=== PATIENT | male | born 1965 | race Hispanic/Latino ===

== ENCOUNTER 2019-02-19 19:46 | Inpatient (IN) | payer MEDICARE, MEDICAID ==
[~2019-02-19] VITALS: Ht 180.3 cm; Wt 82.8 kg
[2019-02-19] MEDS ORDERED: SODIUM CHLORIDE 0.9% 500ML 500 ML IV ONE (19:52)
[2019-02-19 20:28] VITALS: BP 110/65
[2019-02-19] MEDS ORDERED: LAMO25TA9 PO ×2 (21:48→23:17)
[2019-02-19] MEDS ORDERED: ALBU8.5H8 IH (21:48)
[2019-02-19] MEDS ORDERED: ROSU10TA28 PO (21:48)
[2019-02-19] MEDS ORDERED: LORA10TA7 PO (21:48)
[2019-02-19] MEDS ORDERED: ALPR0.255 PO (21:48)
[2019-02-19] MEDS ORDERED: DIPH25CA53 PO (21:48)
[2019-02-19] MEDS ORDERED: LAMO100T16 PO (21:48)
[2019-02-19] MEDS ORDERED: FLUT1BLS IH (21:48)
[2019-02-19] MEDS ORDERED: BUTA-256 PO ×2 (21:48→23:17)
[2019-02-19] MEDS ORDERED: HYDR-4068 PO (21:48)
[2019-02-19] MEDS ORDERED: TIOT4MIS5 IH (21:48)
[2019-02-19] MEDS ORDERED: MONT10TA24 PO (21:48)
[2019-02-19] MEDS ORDERED: OMEP40CA13 PO (21:48)
[2019-02-19] MEDS ORDERED: NALO4SPR NS (21:48)
[2019-02-19] MEDS ORDERED: ASPI-555 PO (21:48)
[2019-02-19] MEDS ORDERED: HYDROCODONE/ACETAMINOPHEN 10/325 MG TAB PO PRN (23:15)
[2019-02-19 23:56] VITALS: BP 112/48
[2019-02-20] VITALS (13 sets, daily range): BP systolic 100–131; BP diastolic 57–72
[2019-02-20 03:28] LABS: ALBUMIN 3.7 g/dL (3.5-5.0); BILIRUBIN,TOTAL 0.3 mg/dL (0.2-1.0); CREATININE 1.3 mg/dL (0.5-1.5); POTASSIUM 4.1 mmol/L (3.5-5.1); TOTAL PROTEIN, SERUM 7.3 g/dL (6.0-8.3)
[2019-02-20 03:29] LABS: HEMATOCRIT 38.5 % (42-54); MEAN CORPUSCULAR HEMOGLOBIN 30.6 pg (27.0-33.0); MEAN CORPUSCULAR HGB CONC 33.9 g/dL (32.0-36.0); MEAN CORPUSCULAR VOLUME 90.3 fL (79-99); PLATELET COUNT (AUTO) 162 K/uL (130-400); RED BLOOD CELL COUNT(AUTO) 4.26 MIL/uL (4.50-6.20); RED CELL DISTRIBUTION WIDTH 13.5 % (11.0-15.5); WHITE BLOOD COUNT (AUTO) 10.6 K/uL (4.8-10.8)
[2019-02-20 03:58] LABS: INR 1.06 (0.85-1.15); PARTIAL THROMBOPLASTIN TIME 22.3 SEC (26.3-35.5); PROTHROMBIN TIME 10.9 SEC (9.6-11.6)
[2019-02-20] MEDS ORDERED: CEFAZOLIN SODIUM 1 GM VIAL IVP SCH (06:00)
[2019-02-20] MEDS ORDERED: DIPHENHYDRAMINE HCL 25 MG CAPSULE PO PRN (06:30)
[2019-02-20] MEDS ORDERED: NALOXONE HCL 0.4 MG/1 ML ML IVP PRN (06:45)
--- NOTE | 2019-02-20 07:30 | NUR ---
ASSESSMENT ENCOUNTERED PT IN SEMI HOLDER'S POSITION, A&OX3, CALM COOPERATIVE AND DOES NOT APPEAR TO BE IN ANY DISTRESS NOR ANY NEURO DEFICITS PRESENT. PT DENIES PAIN, SOB, NAUSEA. TELE MONITOR DISPLAYS SINUS BRADYCARDIA, PT IS NPO FOR PENDING PACEMAKER BY DR DONG, CALL LIGHT WITHIN REACH, FAMILY AT BEDSIDE.
[2019-02-20] MEDS ORDERED: BUTALB/ACETAMINOPHEN/CAFFEINE 1 EACH TABLET PO PRN (08:15)
[2019-02-20] MEDS ORDERED: ASPIRIN 81 MG EC TAB PO SCH (09:00)
[2019-02-20] MEDS ORDERED: LAMOTRIGINE 25 MG TAB PO SCH (09:00)
[2019-02-20] MEDS ORDERED: PANTOPRAZOLE SODIUM 40 MG TABLET.DR PO SCH (09:00)
[2019-02-20] MEDS ORDERED: LORATADINE 10 MG TABLET PO SCH (09:00)
[2019-02-20] MEDS ORDERED: MONTELUKAST SODIUM 10 MG TAB PO SCH (09:00)
[2019-02-20] MEDS ORDERED: SUB TO ALBUTEROL 2.5MG/3ML NEBULES PER P&T IH SCH (09:00)
[2019-02-20] MEDS ORDERED: FLUTICASONE/VILANTEROL 1 EACH BLST.W.DEV IH SCH (09:00)
[2019-02-20] MEDS ORDERED: FLU VACC QS2019-20 36MOS UP/PF 60 MCG/0.5 ML ML IM ONE (09:00)
[2019-02-20] MEDS ORDERED: BUPIVACAINE/PF 0.25% 30ML VIAL IJ ONE (11:44)
[2019-02-20] MEDS ORDERED: CEFAZOLIN SODIUM 1 GM VIAL ONE (11:44)
[2019-02-20] MEDS ORDERED: LIDOCAINE HCL 1% MDV 50ML VIAL ONE (11:45)
[2019-02-20] MEDS: IPRATROPIUM/ALBUTEROL SULFATE 3 ML SOLUTION IH SCH ×2 (12:00→18:46)
[2019-02-20] MEDS ORDERED: FENTANYL CITRATE PF 50 MCG/1 ML 2ML VIAL ONE ×2 (12:27→12:41)
[2019-02-20] MEDS ORDERED: MIDAZOLAM HCL 1 MG/ML 2ML VIAL ONE ×2 (12:27→12:40)
--- NOTE | 2019-02-20 13:55 | NUR ---
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 LEFT SHOULDER DRESSING DRY, INTACT AND SECURE WITH ARM SLING. 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 PT ON BEDREST FOR 3 HOURS PER POST PROCEDURE ORDERS. CALL LIGHT WITHIN REACH, FAMILY AT BEDSIDE.
--- NOTE | 2019-02-20 17:30 | NUR ---
AMBULATION PT AMBULATING TO BATHRROOM AND BACK TO BED, GAIT STEADY AND STRONG WITH STAND BY ASSIST. LEFT SHOULDER DRESSING DRY, INTACT AND SECURED WITH ARM SLING. TOLERATING WELL, CALL LIGHT WITHIN REACH, FAMILY AT BEDSIDE.
--- NOTE | 2019-02-20 19:45 | NUR ---
DISCHARGE INSTRUCTIONS GIVEN, PIV REMOVED AND INTACT, DISCHARGED HOME TO FAMILY VEHICLE VIA WHEELCHAIR.
[2019-02-20] MEDS ORDERED: ATORVASTATIN CALCIUM 20 MG TABLET PO SCH (21:00)
== END 2019-02-20 20:30 | disposition home or self-care (01) | DRG 244 ==
LOC: EDH 19:46 → 2AH 19:47
PROVIDERS: ADMIT Internal Medicine; ATTEND Internal Medicine
PROC: 0JH606Z Insertion of Pacemaker, Dual Chamber into Chest Subcutaneous Tissue and Fascia, Open Approach (ICD-10-PCS; principal; 2019-02-20)
PROC: 02HK3JZ Insertion of Pacemaker Lead into Right Ventricle, Percutaneous Approach (ICD-10-PCS; 2019-02-20)
PROC: 02H63JZ Insertion of Pacemaker Lead into Right Atrium, Percutaneous Approach (ICD-10-PCS; 2019-02-20)
DX: R00.1 Bradycardia, unspecified (principal); E78.5 Hyperlipidemia, unspecified; G40.909 Epilepsy, unspecified, not intractable, without status epilepticus; G47.33 Obstructive sleep apnea (adult) (pediatric); I10 Essential (primary) hypertension; J44.9 Chronic obstructive pulmonary disease, unspecified; F41.9 Anxiety disorder, unspecified; K21.9 Gastro-esophageal reflux disease without esophagitis; Z86.73 Personal history of transient ischemic attack (TIA), and cerebral infarction without residual deficits; Z95.0 Presence of cardiac pacemaker; Z82.49 Family history of ischemic heart disease and other diseases of the circulatory system; Z82.3 Family history of stroke
CPT/HCPCS: 33208; 36415; 71045; 80053; 85027; 85610; 85730; 94640; 94664; 99156; 99157; C1785; G0378; J0690; J2250; J3010; J3490; J7040

== ENCOUNTER 2020-09-18 06:12 | Day surgery (SDC) | payer MEDICARE ==
[2020-09-15 15:03] LABS: HEMATOCRIT 40.2 % (42-54); MEAN CORPUSCULAR HEMOGLOBIN 29.6 pg (27.0-33.0); MEAN CORPUSCULAR HGB CONC 32.3 g/dL (32.0-36.0); MEAN CORPUSCULAR VOLUME 91.6 fL (79-99); PLATELET COUNT (AUTO) 180 K/uL (130-400); RED BLOOD CELL COUNT(AUTO) 4.39 MIL/uL (4.50-6.20); RED CELL DISTRIBUTION WIDTH 12.7 % (11.0-15.5); WHITE BLOOD COUNT (AUTO) 6.4 K/uL (4.8-10.8)
[2020-09-15 15:16] LABS: APPEARANCE,URINE Clear (CLEAR); BILIRUBIN,URINE Negative (NEGATIVE); COLOR,URINE Yellow (YELLOW); GLUCOSE, URINE (UA) Negative (NEGATIVE); KETONES,URINE Negative (NEGATIVE); LEUKOCYTE ESTERASE ,URINE Trace (NEGATIVE); NITRATE,URINE Negative (NEGATIVE); OCCULT BLOOD,URINE Negative (NEGATIVE); PH,URINE 5.5 (5.0-8.0); PROTEIN,URINE Negative (NEGATIVE); UROBILINOGEN,URINE 0.2 mg/dL (0.2-1.0)
[2020-09-15 15:23] LABS: INR 1.03 (0.85-1.15); PROTHROMBIN TIME 11.2 SEC (9.6-11.6)
[2020-09-15 15:24] LABS: PARTIAL THROMBOPLASTIN TIME 24.3 SEC (26.3-35.5)
[2020-09-15 15:26] LABS: CREATININE 1.1 mg/dL (0.5-1.5); POTASSIUM 4.4 mmol/L (3.5-5.1)
[2020-09-15 16:01] LABS: BACTERIA,URINE Rare /HPF (None Seen); RBC,URINE 0-1 /HPF (0-1); SQUAMOUS EPITHELIAL CELL,UR Rare /HPF (0-2); WBC,URINE 0-1 /HPF (0-1)
[2020-09-15 16:13] LABS: BAND NEUTROPHILS % (MANUAL) 6 % (0-2); EOSINOPHILS % (MANUAL) 3 % (1-6); LYMPHOCYTES % (MANUAL) 24 % (22-44); MAN.DIFF COMMENT-IMPRESSION MANUAL DIFFERENTIAL; MONOCYTES % (MANUAL) 6 % (2-9); REACTIVE LYMPHOCYTES 3 % (0-0); SEGMENTED NEUTROPHILS % 58 % (40-70)
[2020-09-15 16:15] LABS: PLATELET MORPHOLOGY COMMENT LARGE PLTS PRESENT
[2020-09-15 17:10] VITALS: BP 128/73
[2020-09-18] VITALS (9 sets, daily range): BP systolic 104–115; BP diastolic 56–71
[~2020-09-18] VITALS: Ht 177.8 cm; Wt 91.4 kg
[~2020-09-18 06:12] MED LIST: ALBU8.5H8 IH; ALPR0.255 PO; ASPI-556 PO; BUTA-256 PO; DIPH25CA53 PO; FLUT1BLS IH; HYDR-4068 PO; LAMO100T16 PO; LAMO25TA9 PO; LORA10TA7 PO; MONT10TA32 PO; OMEP40CA13 PO; ROSU10TA28 PO; SODIUM CHLORIDE 0.9% 500ML 500 ML IV SCH; TIOT4MIS5 IH
[2020-09-18] MEDS ORDERED: SODIUM CHLORIDE 0.9% 1000ML 1,000 ML IV ONE (06:54)
[2020-09-18] MEDS ORDERED: NICARDIPINE HCL 25 MG/10 ML ML IV ONE (07:33)
[2020-09-18] MEDS ORDERED: IOHEXOL-350 50ML VIAL IV ONE (07:33)
[2020-09-18] MEDS ORDERED: IOHEXOL 350 MG/ML 100ML INFUS..BTL IV ONE (07:33)
[2020-09-18] MEDS ORDERED: SODIUM BICARB 50MEQ 50ML VIAL 50 ML ONE (07:33)
[2020-09-18] MEDS ORDERED: HEPARIN SODIUM 1000UNIT/ML 10ML VIAL ONE (07:33)
[2020-09-18] MEDS ORDERED: NITROGLYCERIN 2 MG/VIAL VIAL IV ONE (07:33)
[2020-09-18] MEDS ORDERED: MIDAZOLAM HCL 1 MG/ML 2ML VIAL ONE (07:34)
[2020-09-18] MEDS ORDERED: FENTANYL CITRATE PF 50 MCG/1 ML 2ML VIAL ONE (07:34)
[2020-09-18] MEDS ORDERED: LIDOCAINE HCL 2% 20ML ONE (07:34)
[2020-09-18] MEDS ORDERED: SODIUM CHLORIDE 0.9% 1000ML 1,000 ML IV SCH (08:45)
== END 2020-09-18 12:00 ==
LOC: DAH 06:12
PROVIDERS: ATTEND Internal Medicine Cardiovascular Disease
DX: R07.9 Chest pain, unspecified (principal); I20.8 Other forms of angina pectoris; F41.9 Anxiety disorder, unspecified; E78.5 Hyperlipidemia, unspecified; G47.33 Obstructive sleep apnea (adult) (pediatric); G43.909 Migraine, unspecified, not intractable, without status migrainosus; Z98.890 Other specified postprocedural states; Z95.0 Presence of cardiac pacemaker; Z79.82 Long term (current) use of aspirin; Z79.01 Long term (current) use of anticoagulants; Z79.899 Other long term (current) drug therapy
CPT/HCPCS: 36415; 71045; 80048; 81001; 85025; 85610; 85730; 93005; 93458; A4215; A4216; A4221; A4222; A4223 ×3; A4606; A4663; A6258; A6402; C1769; C1894; J1644 ×2; J2250; J3010; J3490 ×4; J7030; Q9965; Q9967 ×2; 96360; 96361; 99156; 99157